=== PATIENT | male | born 1975 ===

== ENCOUNTER → 2017-07-18 | Outpatient (CLI) | payer OTHER | LOC: FIMAGING 13:49 | PROVIDERS: ATTEND Nurse Practitioner | DX: R76.11 Nonspecific reaction to tuberculin skin test without active tuberculosis (principal); J02.9 Acute pharyngitis, unspecified ==

== ENCOUNTER → 2017-08-01 | Outpatient (CLI) | payer OTHER | LOC: CIMAGING 13:32 | PROVIDERS: ATTEND Nurse Practitioner | DX: J98.11 Atelectasis (principal); J40 Bronchitis, not specified as acute or chronic; K76.0 Fatty (change of) liver, not elsewhere classified; K43.9 Ventral hernia without obstruction or gangrene | CPT/HCPCS: 71250-PO ==